=== PATIENT | male | born 1985 | race Caucasian/White ===

== ENCOUNTER 2017-07-24 19:23 | Emergency (ER) | payer OTHER ==
--- NOTE | 2017-07-24 19:46 | ERPHSYRPT ---
- History of Present Illness Time Seen by Provider: 07/24/17 19:25 Source: patient, police Exam Limitations: no limitations Physician History: 32 y/o male with history of depression and anxiety brought in by police for suicidal and homicidal ideation. Pt was being chased by police and when they tracked him down, he told them he wanted them to shoot him in the head. In the ER, patient says the same thing and also reports that if he sent to half-way, he will kill the first person he sees in half-way. Pt reports being off his zyprexa, klonopin and keppra. Pt also mentions that he feels as if a seizure is coming on. Pt denies any alcohol use, illicit drug use or auditory hallucinations but does admit to seeing things that are not there. Timing/Duration: today Severity of Symptoms-Max: severe Severity of Symptoms-Current: severe Suicidal thoughts: specific plan Associated Symptoms: agitated, anxiety, frustrated Previous symptoms: same symptoms as today Allergies/Adverse Reactions: No Known Drug Allergies Allergy (Verified 07/24/17 20:01) Home Medications: Clonazepam [Klonopin] 1 mg PO BID 09/06/14 [History] Levetiracetam [Keppra] 0 mg PO BID 07/24/17 [History] Hx Tetanus, Diphtheria Vaccination/Date Given: No Hx Influenza Vaccination/Date Given: No Hx Pneumococcal Vaccination/Date Given: No - Past Medical History Pertinent Past Medical History: Yes Neurological History: Epilepsy Cardiac History: Hypertension Respiratory History: Pneumonia Musculoskeletal History: Other Psycho-Social History: Bipolar, Depression - Past Surgical History Past Surgical History: Yes Neuro Surgical History: Other Musculoskeletal: Orthopedic Surgery Other Surgical History: left foot, right knee - Social History Smoking Status: Current every day smoker How long have you smoked: unknown Exposure to second hand smoke: Yes Drug Use: narcotics Patient Lives Alone: No - Review of Systems Constitutional: No Fever, No Chills Eyes: No Symptoms Ears, Nose, & Throat: No Symptoms Respiratory: No Cough, No Dyspnea Cardiac: No Chest Pain, No Edema, No Syncope Abdominal/Gastrointestinal: No Abdominal Pain, No Nausea, No Vomiting, No Diarrhea Genitourinary Symptoms: No Dysuria Musculoskeletal: No Back Pain, No Neck Pain Skin: No Rash Neurological: No Dizziness, No Focal Weakness, No Sensory Changes Psychological: No Symptoms, Drug Abuse, Anxiety Endocrine: No Symptoms All Other Systems: Reviewed and Negative - Nursing Vital Signs Nursing Vital Signs: Initial Vital Signs Temperature 98.9 F 07/24/17 19:36 Pulse Rate 112 H 07/24/17 19:36 Respiratory Rate 20 07/24/17 19:36 Blood Pressure 115/84 07/24/17 19:36 O2 Sat by Pulse Oximetry 100 07/24/17 19:36 - Physical Exam General Appearance: no apparent distress Eyes, Ears, Nose, Throat Exam: normal ENT inspection, moist mucous membranes Neck Exam: normal inspection, non-tender, supple Respiratory Exam: normal breath sounds, lungs clear, No respiratory distress Cardiovascular Exam: regular rate/rhythm, No edema Gastrointestinal/Abdominal Exam: soft, No tenderness, No distention Extremities Exam: normal inspection, normal range of motion, No evidence of injury, No edema Current Suicidality: denies suicide plan Neurological Exam: alert, 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, oriented x 3, agitated, anxious, depressed affect Appearance: disheveled Behavior/Eye Contact/Speech: increased rate of speech, uncooperative, agitated Thoughts/Hallucinations: visual hallucinations Skin Exam: normal color, warm, dry, No rash SpO2 Interpretation: normal Ordered Tests: Active Orders 24 hr Category Date Time Status Clean Catch Urine Specimen STAT Care 07/24/17 20:58 Active IV Insertion STAT Care 07/24/17 19:49 Active ACETAMINOPHEN Stat Lab 07/24/17 20:02 Completed CBC W DIFF Stat Lab 07/24/17 20:02 Completed CMP Stat Lab 07/24/17 20:02 Completed ETHYL ALCOHOL Stat Lab 07/24/17 20:02 Completed Manual Differential NC Stat Lab 07/24/17 20:02 Completed SALICYLATE Stat Lab 07/24/17 20:02 Completed UA W/RFX UR CULTURE Stat Lab 07/24/17 20:33 Completed Urine Triage Profile Stat Lab 07/24/17 20:33 Completed Medication Summary Discontinued Medications Generic Name Dose Route Start Last Admin Trade Name Freq PRN Reason Stop Dose Admin Levetiracetam 1,000 mg/ 110 mls @ 220 mls/hr 07/24/17 20:02 07/24/17 20:24 Dextrose IV 07/24/17 20:31 220 mls/hr STAT ONE Administration Dextrose Confirm 07/24/17 20:16 D5w 100ml Mini Bag 100 Ml Administered 07/24/17 20:17 Dose 100 mls @ ud IV .STK-MED ONE Levetiracetam Confirm 07/24/17 20:16 Keppra 500 Mg/5 Ml Administered 07/24/17 20:17 Dose 1,000 mg .ROUTE .STK-MED ONE Lab/Rad Data: Laboratory Result Diagrams 07/24/17 20:02 07/24/17 20:02 Laboratory Results 07/24/17 07/24/17 07/24/17 Range/Units 20:33 20:33 20:02 WBC (4.0-10.5) K/mm3 RBC (4.1-5.6) M/mm3 Hgb (12.5-18.0) gm/dl Hct (42-50) % MCV (78-100) fl MCH (26-32) pg MCHC (32-36) g/dl RDW (11.5-14.0) % Plt Count (150-450) K/mm3 MPV (6-9.5) fl Segmented Neutrophils (36.-66.) % Lymphocytes (Manual) (24-44) % Monocytes (Manual) (0.0-12.0) % Eosinophils (Manual) (0.00-3.0) % Differential Comment Atypical Lymphocytes % Platelet Estimate (NORMAL) Hypochromasia Sodium 136 (136-145) mEq/L Potassium 3.7 (3.5-5.1) mEq/L Chloride 99 (98-107) mEq/L Carbon Dioxide 23.1 (21-32) mEq/L Anion Gap 17.2 H (5-15) MEQ/L BUN 18 (9-20) mg/dL Creatinine 1.16 (0.55-1.30) mg/dl Estimated GFR > 60 ML/MIN Glucose 83 (70-110) MG/DL Calcium 8.5 (8.5-10.1) mg/dL Total Bilirubin 0.80 (0.2-1.0) mg/dL AST 287 H (15-37) U/L ALT 153 H (12-78) U/L Alkaline Phosphatase 72 (46-116) U/L Serum Total Protein 7.4 (6.4-8.2) gm/dL Albumin 3.8 (3.4-5.0) g/dL Ur Collection Type VOID Urine Color YELLOW (YELLOW) Urine Appearance CLEAR (CLEAR) Urine pH 5.0 (5-6) Ur Specific [place] 1.010 (1.005-1.025) Urine Protein NEGATIVE (Negative) Urine Ketones MODERATE (NEGATIVE) Urine Blood NEGATIVE (0-5) Eric/ul Urine Nitrite NEGATIVE (NEGATIVE) Urine Bilirubin NEGATIVE (NEGATIVE) Urine Urobilinogen NORMAL (0-1) mg/dL Ur Leukocyte Esterase NEGATIVE (NEGATIVE) Urine Culture Reflexed NO (NO) Urine Glucose NEGATIVE (NEGATIVE) mg/dL Salicylates 4.9 (2.8-20.0) mg/dl Urine Opiates Level NEG. (NEGATIVE) Ur Methadone NEG. (NEGATIVE) Acetaminophen < 2.0 L (10-30) ug/ml Urine Barbiturates NEG. (NEGATIVE) Ur Phencyclidine (PCP) NEG. (NEGATIVE) Urine Amphetamine POS. (NEGATIVE) U Benzodiazepine Level NEG. (NEGATIVE) Urine Cocaine NEG. (NEGATIVE) Urine Marijuana (THC) NEG. (NEGATIVE) Ethyl Alcohol < 0.010 (0.00-0.01) % Specimen Received 07/24/17 2030 07/24/17 Range/Units 20:02 WBC 14.8 H (4.0-10.5) K/mm3 RBC 4.00 L (4.1-5.6) M/mm3 Hgb 11.9 L (12.5-18.0) gm/dl Hct 35.4 L (42-50) % MCV 88.5 (78-100) fl MCH 29.7 (26-32) pg MCHC 33.6 (32-36) g/dl RDW 13.3 (11.5-14.0) % Plt Count 256 (150-450) K/mm3 MPV 9.5 (6-9.5) fl Segmented Neutrophils 73 H (36.-66.) % Lymphocytes (Manual) 16 L (24-44) % Monocytes (Manual) 6 (0.0-12.0) % Eosinophils (Manual) 1 (0.00-3.0) % Differential Comment ABNORMAL Atypical Lymphocytes 4 % Platelet Estimate NORMAL (NORMAL) Hypochromasia 1+ Sodium (136-145) mEq/L Potassium (3.5-5.1) mEq/L Chloride (98-107) mEq/L Carbon Dioxide (21-32) mEq/L Anion Gap (5-15) MEQ/L BUN (9-20) mg/dL Creatinine (0.55-1.30) mg/dl Estimated GFR ML/MIN Glucose (70-110) MG/DL Calcium (8.5-10.1) mg/dL Total Bilirubin (0.2-1.0) mg/dL AST (15-37) U/L ALT (12-78) U/L Alkaline Phosphatase (46-116) U/L Serum Total Protein (6.4-8.2) gm/dL Albumin (3.4-5.0) g/dL Ur Collection Type Urine Color (YELLOW) Urine Appearance (CLEAR) Urine pH (5-6) Ur Specific [place] (1.005-1.025) Urine Protein (Negative) Urine Ketones (NEGATIVE) Urine Blood (0-5) Eric/ul Urine Nitrite (NEGATIVE) Urine Bilirubin (NEGATIVE) Urine Urobilinogen (0-1) mg/dL Ur Leukocyte Esterase (NEGATIVE) Urine Culture Reflexed (NO) Urine Glucose (NEGATIVE) mg/dL Salicylates (2.8-20.0) mg/dl Urine Opiates Level (NEGATIVE) Ur Methadone (NEGATIVE) Acetaminophen (10-30) ug/ml Urine Barbiturates (NEGATIVE) Ur Phencyclidine (PCP) (NEGATIVE) Urine Amphetamine (NEGATIVE) U Benzodiazepine Level (NEGATIVE) Urine Cocaine (NEGATIVE) Urine Marijuana (THC) (NEGATIVE) Ethyl Alcohol (0.00-0.01) % Specimen Received - Progress Progress: unchanged Progress Note: 07/24/17 20:54 Pt has been medically cleared. 07/24/17 22:08 Pt has been accepted at [facility] for suicide and homicidal ideation under the care of Dr Mazariegos. - Departure Time of Disposition: 22:09 Departure Disposition: Transfer Clinical Impression: Suicidal ideation, Homicidal ideation Condition: Stable Critical Care Time: No Referrals: EMANI MARIE [Primary Care Provider] -
[2017-07-24] MEDS ORDERED: Keppra 500 MG/5 ML*** 1,000 MG in D5w 100ML Mini Bag 100 ML 100 ML IV ONE (20:02)
[2017-07-24 20:08] LABS: Mean Cell Volume 88.5 fl (78-100); Mean Platelet Volume 9.5 fl (6-9.5); Platelet Count 256 K/mm3 (150-450); Red Cell Distribution Width 13.3 % (11.5-14.0); White Blood Count 14.8 K/mm3 (4.0-10.5)
[2017-07-24 20:14] LABS: Mean Corpuscular Hemoglobin 29.7 pg (26-32)
[2017-07-24] MEDS ORDERED: Keppra 500 MG/5 ML ONE (20:16)
[2017-07-24] MEDS ORDERED: D5w 100ML Mini Bag 100 ML 100 ML IV ONE (20:16)
[2017-07-24 20:24] LABS: ALBUMIN 3.8 g/dL (3.4-5.0); ALKALINE PHOSPHATASE 72 U/L (46-116); ANION GAP 17.2 MEQ/L (5-15); BLOOD UREA NITROGEN 18 mg/dL (9-20); CHLORIDE 99 mEq/L (98-107); Carbon Dioxide 23.1 mEq/L (21-32); ETHYL ALCOHOL < 0.010 % (0.00-0.01); Glucose 83 MG/DL (70-110); Potassium 3.7 mEq/L (3.5-5.1); SGOT/AST 287 U/L (15-37); SGPT/ALT 153 U/L (12-78); SODIUM 136 mEq/L (136-145); Total Protein 7.4 gm/dL (6.4-8.2)
[2017-07-24 20:25] LABS: ACETAMINOPHEN < 2.0 ug/ml (10-30)
[2017-07-24 20:36] VITALS: O2SAT 97
[2017-07-24 20:36] LABS: Collection Type VOID
[2017-07-24 20:37] LABS: ADD URINE CULTURE? NO (NO); Bilirubin NEGATIVE (NEGATIVE); Blood NEGATIVE Ery/ul (0-5); COMPLETE URINE MICROSCOPIC? NO; Glucose NEGATIVE (NEGATIVE); Leukocyte Esterase NEGATIVE (NEGATIVE)
[2017-07-24 21:22] LABS: ATYPICAL LYMPHS 4 %; Eosinophil 1 % (0.00-3.0); Hypochromia 1+; Platelet Estimate NORMAL (NORMAL); Total Cells Counted 100
[2017-07-24 21:32] VITALS: BP 106/63; PULSE 108
== END 2017-07-24 22:45 | disposition short-term general hospital (02) ==
LOC: ED 19:23
DX: R45.851 Suicidal ideations (principal); R45.850 Homicidal ideations; Z79.899 Other long term (current) drug therapy; I10 Essential (primary) hypertension; F31.9 Bipolar disorder, unspecified
CPT/HCPCS: 36000; 36415; 80053; 80177; 80307; 81002; 85025; 96365; 99285; G0481; J1953

== ENCOUNTER 2018-08-09 05:49 | Emergency (ER) | payer OTHER ==
[2018-08-09 06:41] VITALS: BP 157/84
[2018-08-09 06:43] VITALS: O2SAT 96
--- NOTE | 2018-08-09 06:43 | ERPHSYRPT ---
- History of Present Illness Source: patient Exam Limitations: no limitations Patient Subjective Stated Complaint: Insect bite to right outer ankle Triage Nursing Assessment: Patient ambulated into ED and transferred self to bed. Patient A+O X 3. Patient states he thinks he was bit by a spider, but not sure. Patient states he woke up yesterday around 11 am and felt a sting on his right ankle bone. Patient states his ankle has continued to get red and swollen. Patient's right outer ankle noted to be swollen, red and painful. Patient states pain is 10/10 when standing or walking. Patient states when he is lying down he has no pain. Quality: burning, itchy, painful Severity: moderate Location: extremities (right ankle) Possible Causes: insect bite, other (possible injected with needle but pt denies ) Modifying Factors: Improves With: calamine lotion, other ([id number]) Associated Symptoms: change in skin texture, fever, No blisters, No difficulty breathing, No edema, No flushing, No headache, No hives, No jaundice, No nasal congestion, No numbness, No pallor, No paresthesia, No rash, No sore throat Hx Tetanus, Diphtheria Vaccination/Date Given: No Hx Influenza Vaccination/Date Given: No Hx Pneumococcal Vaccination/Date Given: No Immunizations Up to Date: Yes <ESTEBAN PIMENTEL - Last Filed: 08/09/18 06:53> <LAWANDA HAWKINS - Last Filed: 08/09/18 07:28> - History of Present Illness Time Seen by Provider: 08/09/18 06:20 Physician History: 33 y/o white male with h/o iv drug abuse in the past, presents with red, tender and swelling of right outer ankle. pt states he quit iv drug abuse several months ago. he thinks it was caused by an insect bite. he did not see it. tenderness worse when standing. noticed it yesterday morning. (ESTEBAN PIMENTEL) Allergies/Adverse Reactions: No Known Drug Allergies Allergy (Verified 08/09/18 06:09) Home Medications: Levetiracetam [Keppra] 0 mg PO BID 07/24/17 [History] - Review of Systems Constitutional: Fever Eyes: No Symptoms Ears, Nose, & Throat: No Symptoms Respiratory: No Symptoms Cardiac: No Symptoms Abdominal/Gastrointestinal: No Symptoms Genitourinary Symptoms: No Symptoms Skin: Cellulitis (right ankle lateral) Neurological: No Symptoms Psychological: No Symptoms Endocrine: No Symptoms Hematologic/Lymphatic: No Symptoms Immunological/Allergic: No Symptoms <ESTEBAN PIMENTEL - Last Filed: 08/09/18 06:53> - Past Medical History Pertinent Past Medical History: Yes Neurological History: Epilepsy Cardiac History: Hypertension Respiratory History: Pneumonia Musculoskeletal History: Other Psycho-Social History: Bipolar, Depression - Past Surgical History Past Surgical History: Yes Neuro Surgical History: Other Musculoskeletal: Orthopedic Surgery Other Surgical History: left foot, right knee - Social History Smoking Status: Current every day smoker How long have you smoked: 15 years Exposure to second hand smoke: Yes Drug Use: marijuana, narcotics, other (former iv drug abuser) Patient Lives Alone: No <ESTEBAN PIMENTEL - Last Filed: 08/09/18 06:53> - Physical Exam General Appearance: no apparent distress, alert, anxiety Eye Exam: PERRL/EOMI, eyes nml inspection Ears, Nose, Throat Exam: normal ENT inspection, moist mucous membranes Neck Exam: normal inspection, non-tender, supple, full range of motion Respiratory Exam: normal breath sounds, lungs clear, airway intact, No chest tenderness, No respiratory distress, No accessory muscle use, No rhonchi, No wheezing, No stridor Cardiovascular Exam: tachycardia Gastrointestinal/Abdomen Exam: soft, normal bowel sounds, No tenderness, No guarding, No rebound Rectal Exam: not done Back Exam: normal inspection, No CVA tenderness, No vertebral tenderness Extremity Exam: normal range of motion, pelvis stable, inflammation, swelling, tenderness, other (lateral right ankle) Neurologic Exam: alert, oriented x 3, cooperative, 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 Skin Exam: warm, other (redness and cellulitis lateral right ankle without abscess) Lymphatic Exam: No adenopathy SpO2 Interpretation: normal SpO2: 96 Oxygen Delivery: Room Air <ESTEBAN PIMENTEL - Last Filed: 08/09/18 06:53> <LAWANDA HAWKINS - Last Filed: 08/09/18 07:28> - Nursing Vital Signs Nursing Vital Signs: Initial Vital Signs Temperature 100.0 F 08/09/18 05:54 Pulse Rate 136 H 08/09/18 05:54 Respiratory Rate 18 08/09/18 05:54 Blood Pressure 169/92 08/09/18 05:54 O2 Sat by Pulse Oximetry 96 08/09/18 05:54 Pain Scale Pain Intensity 5 - Course Nursing assessment & vital signs reviewed: Yes <ESTEBAN PIMENTEL - Last Filed: 08/09/18 06:53> Ordered Tests: Active Orders 24 hr Category Date Time Status IV Insertion STAT Care 08/09/18 06:50 Active BLOOD CULTURE Stat Lab 08/09/18 07:05 Received CBC W DIFF Stat Lab 08/09/18 06:25 Completed CMP Stat Lab 08/09/18 06:25 Received Manual Differential NC Stat Lab 08/09/18 06:25 Completed Medication Summary Generic Name Dose Route Start Last Admin Trade Name Freq PRN Reason Stop Dose Admin Sodium Chloride 1,000 mls @ 999 mls/hr 08/09/18 06:50 08/09/18 07:00 Sodium Chloride 0.9% 1000 Ml IV 08/09/18 07:50 999 mls/hr .[id number] STA Administration Discontinued Medications Generic Name Dose Route Start Last Admin Trade Name Freq PRN Reason Stop Dose Admin Ceftriaxone Sodium/Dextrose 1 g in 50 mls @ 100 mls/hr 08/09/18 06:51 07:00 Rocephin 1 Gm-D5w 50 Ml Bag IV 08/09/18 07:20 100 ml/hr STAT STA 100 mls/hr Administration Sodium Chloride Confirm 08/09/18 06:57 Sodium Chloride 0.9% 1000 Ml Administered 08/09/18 06:58 Dose 1,000 mls @ ud .ROUTE .STK-MED ONE Ceftriaxone Sodium/Dextrose Confirm 08/09/18 06:57 Rocephin 1 Gm-D5w 50 Ml Bag Administered 08/09/18 06:58 Dose 1 g in 50 mls @ ud IV .STK-MED ONE Morphine Sulfate 2 mg 08/09/18 06:50 08/09/18 06:59 Morphine Sulfate 2 Mg Inj IV 08/09/18 06:51 Not Given STAT ONE Morphine Sulfate Confirm 08/09/18 06:56 Morphine Sulfate 2 Mg Inj Administered 08/09/18 06:57 Dose 2 mg .ROUTE .STK-MED ONE Ondansetron HCl 4 mg 08/09/18 06:50 08/09/18 06:59 Zofran 4 Mg/2 Ml Vial IV 08/09/18 06:51 Not Given STAT ONE Ondansetron HCl Confirm 08/09/18 06:56 Zofran 4 Mg/2 Ml Vial Administered 08/09/18 06:57 Dose 4 mg .ROUTE .STK-MED ONE Trimethoprim/Sulfamethoxazole 1 tab 08/09/18 06:50 08/09/18 06:58 Bactrim Ds Tablet PO 08/09/18 06:51 1 tab STAT ONE Administration Trimethoprim/Sulfamethoxazole Confirm 08/09/18 06:56 Bactrim Ds Tablet Administered 08/09/18 06:57 Dose 1 tab PO .STK-MED ONE Lab/Rad Data: Laboratory Result Diagrams 08/09/18 06:25 Laboratory Results 08/09/18 Range/Units 06:25 WBC 13.5 H (4.0-10.5) K/mm3 RBC 4.39 (4.1-5.6) M/mm3 Hgb 13.4 (12.5-18.0) gm/dl Hct 39.5 L (42-50) % MCV 90.0 (78-100) fl MCH 30.5 (26-32) pg MCHC 33.9 (32-36) g/dl RDW 13.1 (11.5-14.0) % Plt Count 299 (150-450) K/mm3 MPV 9.5 (6-9.5) fl - Progress Progress: unchanged Counseled pt/family regarding: diagnosis, need for follow-up <ESTEBAN PIMENTEL - Last Filed: 08/09/18 06:53> <LAWANDA HAWKINS - Last Filed: 08/09/18 07:28> - Progress Progress Note: 08/09/18 06:[address] hawkins. i reviewed hx, condition, and labs to follow up on. (ESTEBAN PIMENTEL) 08/09/18 07:24, THE CBC WITH WBC-13,500 (LAWANDA HAWKINS) - Departure Departure Disposition: Home Critical Care Time: No <ESTEBAN PIMENTEL - Last Filed: 08/09/18 06:53> - Departure Time of Disposition: 08:30 <LAWANDA HAWKINS - Last Filed: 08/09/18 07:28> - Departure Clinical Impression: Cellulitis Condition: Stable Referrals: WARREN RUTH [Primary Care Provider] - Additional Instructions: keep clean with soap and water. return tomorrow morning for re evaluation. BEGIN ANTIBIOTIC BACTRIM DS TWICE DAILY FOR 7 DAYS. Prescriptions: Hydrocodone/APAP 5/325 [[place] 5/325 mg] 1 each PO Q6H PRN PRN #4 tablet MDD 4 PRN Reason: Pain Smz/Tmp Ds Tablet [Bactrim Ds Tablet] 1 udtab PO BID #14 tablet
[2018-08-09] MEDS ORDERED: Zofran 4 MG/2 ML VIAL IV ONE (06:50)
[2018-08-09] MEDS ORDERED: MORPHINE SULFATE 2 MG INJ IV ONE (06:50)
[2018-08-09] MEDS ORDERED: BACTRIM DS TABLET PO ONE ×2 (06:50→06:56)
[2018-08-09] MEDS ORDERED: Sodium Chloride 0.9% 1000 ML 1,000 ML IV STA (06:50)
[2018-08-09] MEDS ORDERED: ROCEPHIN 1 Gm-D5w 50 ml Bag** 1 G/50 ML IVPB IV STA (06:51)
[2018-08-09 06:54] VITALS: PULSE 130
[2018-08-09] MEDS ORDERED: MORPHINE SULFATE 2 MG INJ ONE (06:56)
[2018-08-09] MEDS ORDERED: Zofran 4 MG/2 ML VIAL ONE (06:56)
[2018-08-09] MEDS ORDERED: Sodium Chloride 0.9% 1000 ML 1,000 ML ONE (06:57)
[2018-08-09] MEDS ORDERED: ROCEPHIN 1 Gm-D5w 50 ml Bag** 1 G/50 ML IVPB IV ONE (06:57)
[2018-08-09 06:59] LABS: Hematocrit 39.5 % (42-50); Hemoglobin 13.4 gm/dl (12.5-18.0); Mean Corpuscular Hemoglobin 30.5 pg (26-32); Mean Corpuscular Hgb Concent. 33.9 g/dl (32-36); Mean Platelet Volume 9.5 fl (6-9.5); Platelet Count 299 K/mm3 (150-450); Red Blood Count 4.39 M/mm3 (4.1-5.6); Red Cell Distribution Width 13.1 % (11.5-14.0); White Blood Count 13.5 K/mm3 (4.0-10.5)
[2018-08-09 07:26] LABS: BAND 2 % (0.0-2.0); Lymphocytes 23 % (24-44); Monocyte 9 % (0.0-12.0); Neutrophils 66 % (36.-66.); Platelet Estimate NORMAL (NORMAL); Total Cells Counted 100; Toxic Granulation 1+
[2018-08-09 07:30] LABS: ALBUMIN 4.6 g/dL (3.5-5.0); ALKALINE PHOSPHATASE 79 U/L (38-126); ANION GAP 13.7 MEQ/L (5-15); BLOOD UREA NITROGEN 12 mg/dL (9-20); CHLORIDE 96 mmol/L (98-107); Calcium 9.5 mg/dL (8.4-10.2); Carbon Dioxide 27 mmol/L (22-30); Creatinine 1 0.77 mg/dL (0.66-1.25); Glucose 162 mg/dL (74-106); Potassium 3.4 mmol/L (3.5-5.1); SGOT/AST 34 U/L (17-59); SGPT/ALT 38 U/L (0-50); SODIUM 133 mmol/L (137-145)
== END 2018-08-09 07:50 | disposition home or self-care (01) ==
LOC: ED 05:49
DX: L03.115 Cellulitis of right lower limb (principal); Z79.899 Other long term (current) drug therapy
CPT/HCPCS: 36000; 36415; 80053; 85025; 87040; 96360; 96365; 96374; 96375; 99284; J0696; J2270; J2405; A9270-GY

== ENCOUNTER 2018-09-19 15:42 | Emergency (ER) | payer OTHER ==
--- NOTE | 2018-09-19 16:16 | ERPHSYRPT ---
- History of Present Illness Time Seen by Provider: 09/19/18 15:50 Source: patient Exam Limitations: intoxication Patient Subjective Stated Complaint: Pt states "I just need to get my medicine. I take abilify and when I do not, I get all messed up.". [facility] states "he was at environmental technical officer today and was acting manic or high so they brought him here and we need to know if it is psychological or if he is on something. Triage Nursing Assessment: Pt alert and oriented X 3, skin pwd. Pt ambulates with an upright steady gait, able to speak in clear full sentences. PT speaking rapidly, extremely fidgety, lethargic, falls alseep when not spoken to. Pt denied any suicidal or homicidal ideation. Physician History: 33 y/o white male presents from [facility] after pt was acting intoxicated , agitated and manic. pt brought to [facility] by his environmental technical officer. pt denies suicidal or homicidal issues. he states he has been off his meds. upon arrival into ED he is hallucinating and speaking to individuals in his room that are not there. it is unclear if pt is off his meds or on illicit drugs. Timing/Duration: today Severity of Symptoms-Max: moderate Severity of Symptoms-Current: moderate Context related to: other (medications) Suicidal thoughts: other (no) Associated Symptoms: agitated, hallucinating Previous symptoms: same symptoms as today Allergies/Adverse Reactions: No Known Drug Allergies Allergy (Verified 09/19/18 15:51) Home Medications: Levetiracetam [Keppra] 0 mg PO BID 07/24/17 [History] Clonazepam 0.5 mg [Klonopin 0.5 MG] 0.5 mg PO DAILY 09/19/18 [History] Famotidine 20 mg [Pepcid 20 MG] 20 mg PO DAILY 09/19/18 [History] Methadone HCl 5 mg PO DAILY 09/19/18 [History] Methylphenidate HCl [Methylphenidate ER] 20 mg PO DAILY 09/19/18 [History] Hx Tetanus, Diphtheria Vaccination/Date Given: Yes Hx Influenza Vaccination/Date Given: No Hx Pneumococcal Vaccination/Date Given: No Immunizations Up to Date: Yes - Past Medical History Pertinent Past Medical History: Yes Neurological History: Epilepsy ENT History: No Pertinent History Cardiac History: Hypertension Respiratory History: Pneumonia Endocrine Medical History: No Pertinent History Musculoskeletal History: Other GI Medical History: No Pertinent History History: No Pertinent History Psycho-Social History: Bipolar, Depression Male Reproductive Disorders: No Pertinent History - Past Surgical History Past Surgical History: Yes Neuro Surgical History: Other Cardiac: No Pertinent History Respiratory: No Pertinent History Gastrointestinal: No Pertinent History Genitourinary: No Pertinent History Musculoskeletal: Orthopedic Surgery Male Surgical History: No Pertinent History Other Surgical History: left foot, right knee - Social History Smoking Status: Current every day smoker How long have you smoked: years Exposure to second hand smoke: Yes Drug Use: marijuana, narcotics, other Patient Lives Alone: No - Review of Systems Constitutional: No Symptoms Eyes: No Symptoms Ears, Nose, & Throat: No Symptoms Respiratory: No Symptoms Cardiac: No Symptoms Abdominal/Gastrointestinal: No Symptoms Genitourinary Symptoms: No Symptoms Musculoskeletal: No Symptoms Skin: No Symptoms Neurological: No Symptoms Psychological: Anxiety, Emotional Lability, Hallucinations (pt speaking to individuals in the room that are not there) Hematologic/Lymphatic: No Symptoms Immunological/Allergic: No Symptoms All Other Systems: Reviewed and Negative - Nursing Vital Signs Nursing Vital Signs: Initial Vital Signs Temperature 100.0 F 09/19/18 15:43 Pulse Rate 118 H 09/19/18 15:43 Respiratory Rate 22 09/19/18 15:43 Blood Pressure 131/96 09/19/18 15:43 O2 Sat by Pulse Oximetry 93 L 09/19/18 15:43 Pain Scale Pain Intensity 0 - Physical Exam General Appearance: no apparent distress, alert, anxiety Eyes, Ears, Nose, Throat Exam: normal ENT inspection, dry mucous membranes Neck Exam: normal inspection, non-tender, supple Respiratory Exam: normal breath sounds, lungs clear, airway intact, No chest tenderness, No respiratory distress, No accessory muscle use, No rhonchi, No wheezing, No stridor Cardiovascular Exam: tachycardia Gastrointestinal/Abdominal Exam: soft, normal bowel sounds, No tenderness, No guarding Extremities Exam: normal inspection, normal range of motion, No evidence of injury Neurological Exam: alert, materials assistant II-XII nml as tested Appearance: impaired insight Behavior/Eye Contact/Speech: alert & cooperative, good eye contact, increased rate of speech, agitated, intoxicated appearance Thoughts/Hallucinations: visual hallucinations Skin Exam: normal color, warm, dry SpO2 Interpretation: borderline oxygenation SpO2: 93 Oxygen Delivery: Room Air - Course Nursing assessment & vital signs reviewed: Yes EKG Interpreted by Me: RATE ([id number]), Sinus Tach, NORMAL AXIS, NORMAL INTERVALS, NORMAL QRS, NORMAL ST-T, Other (no change from ekg dated 01/29/15) Ordered Tests: Active Orders 24 hr Category Date Time Status Office Inspector STAT Care 09/19/18 16:17 Active Clean Catch Urine Specimen STAT Care 09/19/18 16:16 Active EKG-ER Only STAT Care 09/19/18 16:16 Active Psychiatric Consult STAT Cons 09/19/18 16:16 Active ACETAMINOPHEN Stat Lab 09/19/18 16:28 Completed BMP Stat Lab 09/19/18 16:28 Completed CBC W DIFF Stat Lab 09/19/18 16:28 Completed ETHYL ALCOHOL Stat Lab 09/19/18 16:28 Completed Manual Differential NC Stat Lab 09/19/18 16:28 Completed SALICYLATE Stat Lab 09/19/18 16:28 Completed UA W/RFX UR CULTURE Stat Lab 09/19/18 16:35 Completed Urine Triage Profile Stat Lab 09/19/18 16:35 Completed Lab/Rad Data: Laboratory Result Diagrams 09/19/18 16:28 09/19/18 16:28 Laboratory Results 09/19/18 09/19/18 09/19/18 Range/Units 16:35 16:35 16:28 WBC (4.0-10.5) K/mm3 RBC (4.1-5.6) M/mm3 Hgb (12.5-18.0) gm/dl Hct (42-50) % MCV (78-100) fl MCH (26-32) pg MCHC (32-36) g/dl RDW (11.5-14.0) % Plt Count (150-450) K/mm3 MPV (6-9.5) fl Absolute Granulocytes (1.4-6.9) Segmented Neutrophils (36.-66.) % Lymphocytes (Manual) (24-44) % Monocytes (Manual) (0.0-12.0) % Eosinophils (Manual) (0.00-3.0) % Platelet Estimate (NORMAL) RBC Morphology Sodium 141 (137-145) mmol/L Potassium 4.3 (3.5-5.1) mmol/L Chloride 103 (98-107) mmol/L Carbon Dioxide 25 (22-30) mmol/L Anion Gap 17.1 H (5-15) MEQ/L BUN 36 H (9-20) mg/dL Creatinine 1.33 H (0.66-1.25) mg/dL Estimated GFR > 60.0 ML/MIN Glucose 82 (74-106) mg/dL Calcium 9.4 (8.4-10.2) mg/dL Urine Color YELLOW (YELLOW) Urine Appearance SLIGHTLY CLOUDY (CLEAR) Urine pH 5.0 (5-6) Ur Specific [place] 1.021 (1.005-1.025) Urine Protein NEGATIVE (Negative) Urine Ketones SMALL (NEGATIVE) Urine Blood NEGATIVE (0-5) Eric/ul Urine Nitrite NEGATIVE (NEGATIVE) Urine Bilirubin NEGATIVE (NEGATIVE) Urine Urobilinogen NEGATIVE (0-1) mg/dL Ur Leukocyte Esterase NEGATIVE (NEGATIVE) Urine WBC (Auto) 0-2 (0-5) /HPF Urine RBC (Auto) NONE (0-2) /HPF U Hyaline Cast (Auto) 26-50 (0-2) /LPF U Epithel Cells (Auto) NONE (FEW) /HPF Urine Bacteria (Auto) NONE (NEGATIVE) /HPF Urine Mucus (Auto) SLIGHT (NEGATIVE) /HPF Urine Culture Reflexed NO (NO) Urine Glucose NEGATIVE (NEGATIVE) mg/dL Salicylates < 1.0 L (2-20) mg/dL Urine Opiates Level POSITIVE (NEGATIVE) Ur Methadone POSITIVE (NEGATIVE) Acetaminophen < 10 L (10-30) ug/ml Urine Barbiturates NEGATIVE (NEGATIVE) Ur Phencyclidine (PCP) NEGATIVE (NEGATIVE) Urine Amphetamine POSITIVE (NEGATIVE) U Benzodiazepine Level NEGATIVE (NEGATIVE) Urine Cocaine NEGATIVE (NEGATIVE) Urine Marijuana (THC) NEGATIVE (NEGATIVE) Ethyl Alcohol < 10 (0-10) mg/dL /18/18 Range/Units 16:28 WBC 12.4 H (4.0-10.5) K/mm3 RBC 4.34 (4.1-5.6) M/mm3 Hgb 12.9 (12.5-18.0) gm/dl Hct 39.5 L (42-50) % MCV 91.0 (78-100) fl MCH 29.7 (26-32) pg MCHC 32.7 (32-36) g/dl RDW 13.7 (11.5-14.0) % Plt Count 345 (150-450) K/mm3 MPV 8.6 (6-9.5) fl Absolute Granulocytes 6.14 (1.4-6.9) Segmented Neutrophils 55 (36.-66.) % Lymphocytes (Manual) 31 (24-44) % Monocytes (Manual) 13 H (0.0-12.0) % Eosinophils (Manual) 1 (0.00-3.0) % Platelet Estimate NORMAL (NORMAL) RBC Morphology NORMAL Sodium (137-145) mmol/L Potassium (3.5-5.1) mmol/L Chloride (98-107) mmol/L Carbon Dioxide (22-30) mmol/L Anion Gap (5-15) MEQ/L BUN (9-20) mg/dL Creatinine (0.66-1.25) mg/dL Estimated GFR ML/MIN Glucose (74-106) mg/dL Calcium (8.4-10.2) mg/dL Urine Color (YELLOW) Urine Appearance (CLEAR) Urine pH (5-6) Ur Specific [place] (1.005-1.025) Urine Protein (Negative) Urine Ketones (NEGATIVE) Urine Blood (0-5) Eric/ul Urine Nitrite (NEGATIVE) Urine Bilirubin (NEGATIVE) Urine Urobilinogen (0-1) mg/dL Ur Leukocyte Esterase (NEGATIVE) Urine WBC (Auto) (0-5) /HPF Urine RBC (Auto) (0-2) /HPF U Hyaline Cast (Auto) (0-2) /LPF U Epithel Cells (Auto) (FEW) /HPF Urine Bacteria (Auto) (NEGATIVE) /HPF Urine Mucus (Auto) (NEGATIVE) /HPF Urine Culture Reflexed (NO) Urine Glucose (NEGATIVE) mg/dL Salicylates (2-20) mg/dL Urine Opiates Level (NEGATIVE) Ur Methadone (NEGATIVE) Acetaminophen (10-30) ug/ml Urine Barbiturates (NEGATIVE) Ur Phencyclidine (PCP) (NEGATIVE) Urine Amphetamine (NEGATIVE) U Benzodiazepine Level (NEGATIVE) Urine Cocaine (NEGATIVE) Urine Marijuana (THC) (NEGATIVE) Ethyl Alcohol (0-10) mg/dL - Progress Progress Note: 09/19/18 19:52 pt becoming more agitated. stated to chon brock "if i dont get help now, im going to blow my brains out!" i will place pt on emergency senior living for transfer to a inpatient psychiatric facility. 09/19/18 21:38 dr. rizvi from [facility] reviewed all info sent to them. he accepts pt for transfer. Counseled pt/family regarding: lab results, diagnosis - Departure Time of Disposition: 21:40 Departure Disposition: Home Clinical Impression: Hallucinations, Manic behavior, Agitation Condition: Stable Critical Care Time: No Referrals: WARREN RUTH [Primary Care Provider] -
[2018-09-19 16:33] LABS: Granulocyte Absolute (ANC) 6.14 (1.4-6.9); Hematocrit 39.5 % (42-50); Hemoglobin 12.9 gm/dl (12.5-18.0); Mean Corpuscular Hemoglobin 29.7 pg (26-32); Mean Corpuscular Hgb Concent. 32.7 g/dl (32-36); Mean Platelet Volume 8.6 fl (6-9.5); Platelet Count 345 K/mm3 (150-450); Red Blood Count 4.34 M/mm3 (4.1-5.6); Red Cell Distribution Width 13.7 % (11.5-14.0); White Blood Count 12.4 K/mm3 (4.0-10.5)
[2018-09-19 17:05] LABS: Appearance SLIGHTLY CLOUDY (CLEAR); Bilirubin NEGATIVE (NEGATIVE); Blood NEGATIVE Ery/ul (0-5); Glucose NEGATIVE (NEGATIVE); Ketones SMALL (NEGATIVE); Leukocyte Esterase NEGATIVE (NEGATIVE); Nitrite NEGATIVE (NEGATIVE); Protein,Urine Dip NEGATIVE (Negative); Specific Gravity 1.021 (1.005-1.025); Urobilinogen NEGATIVE mg/dL (0-1)
[2018-09-19 17:18] LABS: ANION GAP 17.1 MEQ/L (5-15); BLOOD UREA NITROGEN 36 mg/dL (9-20); CHLORIDE 103 mmol/L (98-107); Calcium 9.4 mg/dL (8.4-10.2); Carbon Dioxide 25 mmol/L (22-30); Creatinine 1 1.33 mg/dL (0.66-1.25); Eosinophil 1 % (0.00-3.0); Glucose 82 mg/dL (74-106); Lymphocytes 31 % (24-44); Monocyte 13 % (0.0-12.0); Neutrophils 55 % (36.-66.); Platelet Estimate NORMAL (NORMAL); Potassium 4.3 mmol/L (3.5-5.1); SODIUM 141 mmol/L (137-145); Total Cells Counted 100
[2018-09-19 17:21] LABS: ACETAMINOPHEN < 10 ug/ml (10-30); ETHYL ALCOHOL < 10 mg/dL (0-10); SALICYLATE < 1.0 mg/dL (2-20)
[2018-09-19 17:29] LABS: Barbiturate,Urine NEGATIVE (NEGATIVE); Benzodiazepine,Urine NEGATIVE (NEGATIVE); Cocaine,Urine NEGATIVE (NEGATIVE); Methadone,Urine POSITIVE (NEGATIVE); Opiate,Urine POSITIVE (NEGATIVE); PCP,Urine NEGATIVE (NEGATIVE); THC,Urine NEGATIVE (NEGATIVE)
[2018-09-19 17:58] LABS: Amphetamine,Urine POSITIVE (NEGATIVE)
[2018-09-19 21:45] VITALS: BP 127/67; PULSE 92; O2SAT 95
[2018-09-19] MEDS ORDERED: Klonopin 0.5 MG ONE (22:27)
[2018-09-20] MEDS ORDERED: Klonopin 0.5 MG PO ONE (22:21)
== END 2018-09-19 22:52 ==
LOC: ED 15:42
DX: R44.3 Hallucinations, unspecified (principal); F30.9 Manic episode, unspecified; R45.1 Restlessness and agitation; Z79.899 Other long term (current) drug therapy
CPT/HCPCS: 36415; 80048; 80307; 81001; 85025; 93005; 93041; 99285; G0480; G0481; A9270-GY

== ENCOUNTER 2019-06-15 19:09 | Emergency (ER) | payer OTHER ==
[2019-06-15 19:39] LABS: BASOPHIL % 0.2 % (0.0-0.4); Basophil (Absolute #) 0.02 (0-0.4); Eosinophil % 2.4 % (0.00-5.0); Eosinophil (Absolute #) 0.27 (0-0.5); Granulocyte Absolute (ANC) 5.21 (1.4-6.9); Granulocytes % 45.6 % (36.0-66.0); Hemoglobin 12.4 gm/dl (12.5-18.0); Lymphocyte (Absolute #) 4.59 (1.0-4.6); Lymphocytes % 40.3 % (24.0-44.0); Mean Cell Volume 91.1 fl (78-100); Mean Corpuscular Hemoglobin 30.5 pg (26-32); Mean Corpuscular Hgb Concent. 33.5 g/dl (32-36); Monocyte (Absolute #) 1.31 (0.0-1.3); Monocytes % 11.5 % (0.0-12.0); Platelet Count 288 K/mm3 (150-450); Red Blood Count 4.06 M/mm3 (4.1-5.6); Red Cell Distribution Width 13.4 % (11.5-14.0); White Blood Count 11.4 K/mm3 (4.0-10.5)
[2019-06-15 19:45] LABS: INR 1.02 (0.8-3.0); PROTIME 11.5 SECONDS (8.83-12.87)
--- NOTE | 2019-06-15 19:46 | ERPHSYRPT ---
- History of Present Illness Time Seen by Provider: 06/15/19 19:15 Source: patient, police Exam Limitations: no limitations Patient Subjective Stated Complaint: per law enforcement- pt started c/o shortness of breath en route to nursing home. pt states he hs dizzy and has pain in the front to f his head. Triage Nursing Assessment: pt alert and oriented, arrive with law enforcement. ambulates into room, steady gait noted. pt tachypnic, lungs cta. skin warm and dry. o2 sat 100 on room air. pt restless in bed, c/o anxiety and pain in his head Physician History: Patient began having shortness of breath after he was arrested by police for violating a restraining order. Patient did not suffer any injury prior to experiencing the dyspnea sensation. Timing/Duration: today Activities at Onset: emotional stress Severity of Dyspnea-Max: severe Severity of Dyspnea-Current: severe Possible Cause: occasional episodes Modifying Factors: Improves With: other (being arrested). Worsens With: deep breath, exertion Associated Symptoms: constant, anxiety, lightheadedness, dizziness, No cough, No chest pain/discomfort, No edema, No fever, No wheezing, No weakness, No ankle swelling, No hemoptysis, No calf pain, No heaviness, No leg swelling, No muscle spasms hands, No painful breathing, No productive cough Allergies/Adverse Reactions: No Known Drug Allergies Allergy (Verified 06/15/19 19:33) Home Medications: Levetiracetam [Keppra] 500 mg PO BID 07/24/17 [History] Famotidine 20 mg [Pepcid 20 MG] 20 mg PO BID 09/19/18 [History] Methadone HCl 5 mg PO DAILY 09/19/18 [History] Methylphenidate HCl [Methylphenidate ER] 20 mg PO DAILY 09/19/18 [History] Buspirone HCl [Buspar] 10 mg PO BID 06/15/19 [History] Divalproex Sodium [Depakote ER] 500 mg PO BID 06/15/19 [History] Enalapril/Hydrochlorothiazide [Enalapril-Hctz 10-25 mg Tablet] 1 each PO DAILY 06/15/19 [History] Gabapentin 300 mg PO TID 06/15/19 [History] Mirtazapine [Remeron] 15 mg PO HS 06/15/19 [History] OLANZapine [Zyprexa] 25 mg PO HS 06/15/19 [History] Prazosin HCl 1 mg PO HS 06/15/19 [History] Hx Tetanus, Diphtheria Vaccination/Date Given: No (unsure) Hx Influenza Vaccination/Date Given: No Hx Pneumococcal Vaccination/Date Given: No - Review of Systems Constitutional: No Fever, No Chills, No Weakness Eyes: No Eye Pain, No Vision Changes Ears, Nose, & Throat: No Nose Congestion, No Epistaxis, No Loose Teeth, No Throat Swelling, No Hoarse, No Stridor Respiratory: Dyspnea, No Cough, No Stridor, No Wheezing Cardiac: No Chest Pain, No Edema, No Syncope Abdominal/Gastrointestinal: No Abdominal Pain, No Nausea, No Vomiting, No Diarrhea Genitourinary Symptoms: No Dysuria Musculoskeletal: No Back Pain, No Neck Pain Skin: No Rash Neurological: No Dizziness, No Focal Weakness, No Sensory Changes Psychological: No Symptoms Endocrine: No Symptoms All Other Systems: Reviewed and Negative - Past Medical History Pertinent Past Medical History: Yes Neurological History: Epilepsy ENT History: No Pertinent History Cardiac History: Hypertension Respiratory History: Pneumonia Endocrine Medical History: No Pertinent History Musculoskeletal History: Other GI Medical History: No Pertinent History History: No Pertinent History Psycho-Social History: Bipolar, Depression Male Reproductive Disorders: No Pertinent History Other Medical History: schizophrenia - Past Surgical History Past Surgical History: Yes Neuro Surgical History: Other Cardiac: No Pertinent History Respiratory: No Pertinent History Gastrointestinal: No Pertinent History Genitourinary: No Pertinent History Musculoskeletal: Orthopedic Surgery Male Surgical History: No Pertinent History Other Surgical History: left foot, right knee - Social History Smoking Status: Current every day smoker How long have you smoked: years Exposure to second hand smoke: No Drug Use: none Patient Lives Alone: No - Nursing Vital Signs Nursing Vital Signs: Initial Vital Signs Temperature 98.0 F 06/15/19 19:10 Pulse Rate 110 H 06/15/19 19:10 Respiratory Rate 30 H 06/15/19 19:10 Blood Pressure 156/106 06/15/19 19:10 O2 Sat by Pulse Oximetry 100 06/15/19 19:10 Pain Scale Pain Intensity 0 - Physical Exam General Appearance: no apparent distress, alert Eye Exam: PERRL/EOMI, eyes nml inspection, No scleral icterus, No photophobia Ears, Nose, Throat Exam: hearing grossly normal, normal ENT inspection, normal pharynx Neck Exam: normal inspection, non-tender, supple, full range of motion, No Brudzinski, No Kernig's, No meningismus, No JVD, No limited range of motion, No lymphadenopathy (R), No lymphadenopathy (L) Respiratory Exam: normal breath sounds, lungs clear, respiratory distress, airway intact, No chest tenderness, No diminished breath sounds, No accessory muscle use, No prolonged expirations, No crackles/rales, No rhonchi, No wheezing , No stridor, No pleural rub Cardiovascular/Chest Exam: normal heart sounds, regular rate/rhythm, normal peripheral pulses, No murmur, No edema, No JVD Abdominal/Gastrointestinal Exam: soft, normal bowel sounds, No tenderness, No distention, No mass Extremity Exam: non-tender, normal range of motion, normal inspection, normal capillary refill, no calf tenderness, no pedal edema Peripheral Pulses Exam: carotid (R): 2+, carotid (L): 2+ Neurologic Exam: alert, oriented x 3, cooperative, 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, sensation nml, No motor deficits Skin Exam: normal color, warm, No dry, No rash SpO2 Interpretation: normal SpO2: 100 O2 Delivery: Room Air - Course Nursing assessment & vital signs reviewed: Yes EKG Interpreted by Me: RATE, NORMAL AXIS, NORMAL INTERVALS, NORMAL QRS, NORMAL ST-T, Other (no change in comparison to EKG from 09/19/2018) Ordered Tests: Active Orders 24 hr Category Date Time Status [employer] Operator STAT Care 06/15/19 19:13 Active EKG-ER Only STAT Care 06/15/19 19:12 Active IV Insertion STAT Care 06/15/19 19:12 Active NPO (ED) STAT Care 06/15/19 19:12 Active CHEST 1 VIEW (PORTABLE) Stat Exams 06/15/19 19:13 Taken CBC W DIFF Stat Lab 06/15/19 19:12 Completed CMP Stat Lab 06/15/19 19:12 Completed D-DIMER QUANTITATION Stat Lab 06/15/19 19:12 Completed Lactic Acid Stat Lab 06/15/19 19:40 Completed Lactic Acid Stat Lab 06/15/19 21:46 Received MAGNESIUM Stat Lab 06/15/19 19:12 Completed NT PRO BNP Stat Lab 06/15/19 19:12 Completed PROTIME WITH INR Stat Lab 06/15/19 19:12 Completed TROPONIN Q3H Lab 06/15/19 19:15 Completed TROPONIN Q3H Lab 06/15/19 22:15 Ordered TROPONIN Q3H Lab 06/16/19 01:15 Ordered TROPONIN Q3H Lab 06/16/19 04:15 Ordered TROPONIN Q3H Lab 06/16/19 07:15 Ordered UA W/RFX UR CULTURE Stat Lab 06/15/19 19:45 Completed Urine Triage Profile Stat Lab 06/15/19 20:04 Completed VENOUS BLOOD GAS Stat Lab 06/15/19 19:40 Completed Medication Summary Generic Name Dose Route Start Last Admin Trade Name Freq PRN Reason Stop Dose Admin Sodium Chloride 2,000 mls @ 999 mls/hr 06/15/19 19:57 06/15/19 21:02 Sodium Chloride 0.9% 1000 Ml IV 06/15/19 21:57 999 mls/hr .Q2H1M STA Administration Discontinued Medications Generic Name Dose Route Start Last Admin Trade Name Freq PRN Reason Stop Dose Admin Sodium Chloride Confirm 06/15/19 19:56 Sodium Chloride 0.9% 1000 Ml Administered 06/15/19 19:57 Dose 1,000 mls @ ud .ROUTE .STK-MED ONE Sodium Chloride Confirm 06/15/19 21:00 Sodium Chloride 0.9% 1000 Ml Administered 06/15/19 21:01 Dose 1,000 mls @ ud .ROUTE .STK-MED ONE Lab/Rad Data: Laboratory Result Diagrams 06/15/19 19:12 06/15/19 19:12 Laboratory Results 06/15/19 06/15/19 06/15/19 Range/Units Unknown 21:46 20:04 WBC (4.0-10.5) K/mm3 RBC (4.1-5.6) M/mm3 Hgb (12.5-18.0) gm/dl Hct (42-50) % MCV (78-100) fl MCH (26-32) pg MCHC (32-36) g/dl RDW (11.5-14.0) % Plt Count (150-450) K/mm3 MPV (6-9.5) fl Gran % (36.0-66.0) % Eos # (Auto) (0-0.5) Absolute Lymphs (auto) (1.0-4.6) Absolute Monos (auto) (0.0-1.3) Lymphocytes % (24.0-44.0) % Monocytes % (0.0-12.0) % Eosinophils % (0.00-5.0) % Basophils % (0.0-0.4) % Absolute Granulocytes (1.4-6.9) Basophils # (0-0.4) PT (8.83-12.87) SECONDS INR (0.8-3.0) D-Dimer (215-500) ng/mL pO2/FiO2 Ratio % VBG pH (7.32-7.42) VBG pCO2 at Pat Temp (42-55) mm/Hg VBG pO2 at Pat Temp (25-40) mm/Hg VBG HCO3 (22-28) meq/L VBG O2 Sat (Monika) (95-100) VBG Base Excess (-2.0-2.0) VBG Hemoglobin VBG Carboxyhemoglobin (0.0-6.9) % T HGB POC Potassium (3.5-5.1) Sodium (137-145) mmol/L Potassium (3.5-5.1) mmol/L Chloride (98-107) mmol/L Carbon Dioxide (22-30) mmol/L Anion Gap (5-15) MEQ/L BUN (9-20) mg/dL Creatinine (0.66-1.25) mg/dL Estimated GFR ML/MIN Glucose (74-106) mg/dL Lactic Acid 2.4 H (0.4-2.0) Calcium (8.4-10.2) mg/dL Magnesium (1.6-2.3) mg/dL Total Bilirubin (0.2-1.3) mg/dL AST (17-59) U/L ALT (0-50) U/L Alkaline Phosphatase (38-126) U/L Troponin I (0.000-0.034) ng/mL NT-Pro-B Natriuret Pep (0-450) pg/mL Serum Total Protein (6.3-8.2) g/dL Albumin (3.5-5.0) g/dL Urine Color (YELLOW) Urine Appearance (CLEAR) Urine pH (5-6) Ur Specific [place] (1.005-1.025) Urine Protein (Negative) Urine Ketones (NEGATIVE) Urine Blood (0-5) Eric/ul Urine Nitrite (NEGATIVE) Urine Bilirubin (NEGATIVE) Urine Urobilinogen (0-1) mg/dL Ur Leukocyte Esterase (NEGATIVE) Urine WBC (Auto) (0-5) /HPF Urine RBC (Auto) (0-2) /HPF U Epithel Cells (Auto) (FEW) /HPF Urine Bacteria (Auto) (NEGATIVE) /HPF Urine Mucus (Auto) (NEGATIVE) /HPF Urine Culture Reflexed (NO) Urine Glucose (NEGATIVE) mg/dL Urine Opiates Level NEGATIVE (NEGATIVE) Ur Methadone POSITIVE (NEGATIVE) Urine Barbiturates NEGATIVE (NEGATIVE) Ur Phencyclidine (PCP) NEGATIVE (NEGATIVE) Urine Amphetamine POSITIVE (NEGATIVE) U Benzodiazepine Level NEGATIVE (NEGATIVE) Urine Cocaine NEGATIVE (NEGATIVE) Urine Marijuana (THC) NEGATIVE (NEGATIVE) Influenza Type A Ag NEGATIVE (NEGATIVE) Influenza Type B Ag NEGATIVE (NEGATIVE) RSV (PCR) NEGATIVE (Negative) 06/15/19 06/15/19 06/15/19 Range/Units 19:45 19:40 19:15 WBC (4.0-10.5) K/mm3 RBC (4.1-5.6) M/mm3 Hgb (12.5-18.0) gm/dl Hct (42-50) % MCV (78-100) fl MCH (26-32) pg MCHC (32-36) g/dl RDW (11.5-14.0) % Plt Count (150-450) K/mm3 MPV (6-9.5) fl Gran % (36.0-66.0) % Eos # (Auto) (0-0.5) Absolute Lymphs (auto) (1.0-4.6) Absolute Monos (auto) (0.0-1.3) Lymphocytes % (24.0-44.0) % Monocytes % (0.0-12.0) % Eosinophils % (0.00-5.0) % Basophils % (0.0-0.4) % Absolute Granulocytes (1.4-6.9) Basophils # (0-0.4) PT (8.83-12.87) SECONDS INR (0.8-3.0) D-Dimer (215-500) ng/mL pO2/FiO2 Ratio 21.0 % VBG pH 7.46 H (7.32-7.42) VBG pCO2 at Pat Temp 35 L (42-55) mm/Hg VBG pO2 at Pat Temp 24 L (25-40) mm/Hg VBG HCO3 24.9 (22-28) meq/L VBG O2 Sat (Monika) 56.8 L (95-100) VBG Base Excess 1.4 (-2.0-2.0) VBG Hemoglobin 12.6 VBG Carboxyhemoglobin 7.8 H* (0.0-6.9) % T HGB POC Potassium 4.1 (3.5-5.1) Sodium (137-145) mmol/L Potassium (3.5-5.1) mmol/L Chloride (98-107) mmol/L Carbon Dioxide (22-30) mmol/L Anion Gap (5-15) MEQ/L BUN (9-20) mg/dL Creatinine (0.66-1.25) mg/dL Estimated GFR ML/MIN Glucose (74-106) mg/dL Lactic Acid 3.6 H (0.4-2.0) Calcium (8.4-10.2) mg/dL Magnesium (1.6-2.3) mg/dL Total Bilirubin (0.2-1.3) mg/dL AST (17-59) U/L ALT (0-50) U/L Alkaline Phosphatase (38-126) U/L Troponin I < 0.012 (0.000-0.034) ng/mL NT-Pro-B Natriuret Pep (0-450) pg/mL Serum Total Protein (6.3-8.2) g/dL Albumin (3.5-5.0) g/dL Urine Color STRAW (YELLOW) Urine Appearance CLEAR (CLEAR) Urine pH 7.0 (5-6) Ur Specific [place] 1.012 (1.005-1.025) Urine Protein NEGATIVE (Negative) Urine Ketones NEGATIVE (NEGATIVE) Urine Blood NEGATIVE (0-5) Eric/ul Urine Nitrite NEGATIVE (NEGATIVE) Urine Bilirubin NEGATIVE (NEGATIVE) Urine Urobilinogen NEGATIVE (0-1) mg/dL Ur Leukocyte Esterase NEGATIVE (NEGATIVE) Urine WBC (Auto) NONE (0-5) /HPF Urine RBC (Auto) NONE (0-2) /HPF U Epithel Cells (Auto) NONE (FEW) /HPF Urine Bacteria (Auto) NONE (NEGATIVE) /HPF Urine Mucus (Auto) SLIGHT (NEGATIVE) /HPF Urine Culture Reflexed NO (NO) Urine Glucose 150 (NEGATIVE) mg/dL Urine Opiates Level (NEGATIVE) Ur Methadone (NEGATIVE) Urine Barbiturates (NEGATIVE) Ur Phencyclidine (PCP) (NEGATIVE) Urine Amphetamine (NEGATIVE) U Benzodiazepine Level (NEGATIVE) Urine Cocaine (NEGATIVE) Urine Marijuana (THC) (NEGATIVE) Influenza Type A Ag (NEGATIVE) Influenza Type B Ag (NEGATIVE) RSV (PCR) (Negative) 06/15/19 06/15/19 06/15/19 Range/Units 19:12 19:12 19:12 WBC 11.4 H (4.0-10.5) K/mm3 RBC 4.06 L (4.1-5.6) M/mm3 Hgb 12.4 L (12.5-18.0) gm/dl Hct 37.0 L (42-50) % MCV 91.1 (78-100) fl MCH 30.5 (26-32) pg MCHC 33.5 (32-36) g/dl RDW 13.4 (11.5-14.0) % Plt Count 288 (150-450) K/mm3 MPV 9.0 (6-9.5) fl Gran % 45.6 (36.0-66.0) % Eos # (Auto) 0.27 (0-0.5) Absolute Lymphs (auto) 4.59 (1.0-4.6) Absolute Monos (auto) 1.31 H (0.0-1.3) Lymphocytes % 40.3 (24.0-44.0) % Monocytes % 11.5 (0.0-12.0) % Eosinophils % 2.4 (0.00-5.0) % Basophils % 0.2 (0.0-0.4) % Absolute Granulocytes 5.21 (1.4-6.9) Basophils # 0.02 (0-0.4) PT 11.5 (8.83-12.87) SECONDS INR 1.02 (0.8-3.0) D-Dimer 215 (215-500) ng/mL pO2/FiO2 Ratio % VBG pH (7.32-7.42) VBG pCO2 at Pat Temp (42-55) mm/Hg VBG pO2 at Pat Temp (25-40) mm/Hg VBG HCO3 (22-28) meq/L VBG O2 Sat (Monika) (95-100) VBG Base Excess (-2.0-2.0) VBG Hemoglobin VBG Carboxyhemoglobin (0.0-6.9) % T HGB POC Potassium (3.5-5.1) Sodium 138 (137-145) mmol/L Potassium 4.1 (3.5-5.1) mmol/L Chloride 105 (98-107) mmol/L Carbon Dioxide 22 (22-30) mmol/L Anion Gap 16.0 H (5-15) MEQ/L BUN 25 H (9-20) mg/dL Creatinine 1.04 (0.66-1.25) mg/dL Estimated GFR > 60.0 ML/MIN Glucose 112 H (74-106) mg/dL Lactic Acid (0.4-2.0) Calcium 9.4 (8.4-10.2) mg/dL Magnesium 2.0 (1.6-2.3) mg/dL Total Bilirubin 0.30 (0.2-1.3) mg/dL AST 30 (17-59) U/L ALT 40 (0-50) U/L Alkaline Phosphatase 85 (38-126) U/L Troponin I (0.000-0.034) ng/mL NT-Pro-B Natriuret Pep 58.6 (0-450) pg/mL Serum Total Protein 8.2 (6.3-8.2) g/dL Albumin 4.4 (3.5-5.0) g/dL Urine Color (YELLOW) Urine Appearance (CLEAR) Urine pH (5-6) Ur Specific [place] (1.005-1.025) Urine Protein (Negative) Urine Ketones (NEGATIVE) Urine Blood (0-5) Eric/ul Urine Nitrite (NEGATIVE) Urine Bilirubin (NEGATIVE) Urine Urobilinogen (0-1) mg/dL Ur Leukocyte Esterase (NEGATIVE) Urine WBC (Auto) (0-5) /HPF Urine RBC (Auto) (0-2) /HPF U Epithel Cells (Auto) (FEW) /HPF Urine Bacteria (Auto) (NEGATIVE) /HPF Urine Mucus (Auto) (NEGATIVE) /HPF Urine Culture Reflexed (NO) Urine Glucose (NEGATIVE) mg/dL Urine Opiates Level (NEGATIVE) Ur Methadone (NEGATIVE) Urine Barbiturates (NEGATIVE) Ur Phencyclidine (PCP) (NEGATIVE) Urine Amphetamine (NEGATIVE) U Benzodiazepine Level (NEGATIVE) Urine Cocaine (NEGATIVE) Urine Marijuana (THC) (NEGATIVE) Influenza Type A Ag (NEGATIVE) Influenza Type B Ag (NEGATIVE) RSV (PCR) (Negative) - Progress Progress: improved, re-examined Air Movement: good Progress Note: 06/15/19 21:54 Patient's vital to improve with time, IV hydration and no medications were given. patient has no current complaint of shortness of breath, palpitations, chest pain, nausea, vomiting, dizziness, or any focal weakness. With patient having no past history of DVT or PE, no physical exam findings consistent with DVT and a normal range D-Dimer, patient is at low risk of pulmonary embolus causing his dyspnea, so no need for CTA chest at this time. HEART score: 1, up to 1.7 percent chance for MACE in the next 6 weeks, low risk Blood Culture(s) Obtained: No Antibiotics given: No Counseled pt/family regarding: lab results, diagnosis, need for follow-up, rad results - Departure Departure Disposition: Skilled Nursing/Nursing Home Clinical Impression: Elevated blood pressure reading without diagnosis of hypertension Dyspnea Qualifiers: Dyspnea type: unspecified Qualified Code(s): R06.00 - Dyspnea, unspecified Condition: Good Critical Care Time: No Referrals: WARREN RUTH [Primary Care Provider] - 06/16/19 Additional Instructions: Return immediately back to the emergency department if any recurrent chest pain , shortness of breath, back pain, abdominal pain, pain on inspiration or any other concerning signs or symptoms that were not present at today's visit for immediate reevaluation in the emergency department.
[2019-06-15 19:47] LABS: Lactic Acid 3.6 (0.4-2.0); VBG BASE EXCESS 1.4 (-2.0-2.0); VBG HCO3- 24.9 meq/L (22-28); VBG HEMOGLOBIN 12.6; VBG O2 SATURATION 56.8 (95-100); VBG PCO2 35 mm/Hg (42-55); VBG PO2 24 mm/Hg (25-40); VBG POTASSIUM 4.1 (3.5-5.1); VBG pH 7.46 (7.32-7.42)
[2019-06-15 19:48] LABS: VBG CARBOXYHEMOGLOBIN 7.8 % T HGB (0.0-6.9)
[2019-06-15] MEDS ORDERED: Sodium Chloride 0.9% 1000 ML 1,000 ML ONE ×2 (19:56→21:00)
[2019-06-15] MEDS: Sodium Chloride 0.9% 1000 ML 2,000 ML IV STA ×2 (19:58→21:02)
[2019-06-15 20:00] LABS: ALBUMIN 4.4 g/dL (3.5-5.0); ALKALINE PHOSPHATASE 85 U/L (38-126); BLOOD UREA NITROGEN 25 mg/dL (9-20); CHLORIDE 105 mmol/L (98-107); Calcium 9.4 mg/dL (8.4-10.2); Carbon Dioxide 22 mmol/L (22-30); Creatinine 1 1.04 mg/dL (0.66-1.25); Glucose 112 mg/dL (74-106); NT PRO BNP 58.6 pg/mL (0-450); Potassium 4.1 mmol/L (3.5-5.1); SGOT/AST 30 U/L (17-59); SGPT/ALT 40 U/L (0-50); SODIUM 138 mmol/L (137-145); Total Protein 8.2 g/dL (6.3-8.2)
[2019-06-15 20:02] LABS: Appearance CLEAR (CLEAR); Bilirubin NEGATIVE (NEGATIVE); Blood NEGATIVE Ery/ul (0-5); Glucose 150 mg/dL (NEGATIVE); Ketones NEGATIVE (NEGATIVE); Leukocyte Esterase NEGATIVE (NEGATIVE); Mucus SLIGHT /HPF (NEGATIVE); Nitrite NEGATIVE (NEGATIVE); Protein,Urine Dip NEGATIVE (Negative); Specific Gravity 1.012 (1.005-1.025); Urobilinogen NEGATIVE mg/dL (0-1)
[2019-06-15 20:13] LABS: INFLUENZA A NEGATIVE (NEGATIVE); INFLUENZA B NEGATIVE (NEGATIVE); RESPIRATORY SYNCTIAL VIRUS NEGATIVE (Negative)
[2019-06-15 20:13] LABS: Barbiturate,Urine NEGATIVE (NEGATIVE); Benzodiazepine,Urine NEGATIVE (NEGATIVE); Cocaine,Urine NEGATIVE (NEGATIVE); Methadone,Urine POSITIVE (NEGATIVE); Opiate,Urine NEGATIVE (NEGATIVE); PCP,Urine NEGATIVE (NEGATIVE); THC,Urine NEGATIVE (NEGATIVE)
[2019-06-15 20:39] LABS: Amphetamine,Urine POSITIVE (NEGATIVE)
[2019-06-15 21:52] LABS: Lactic Acid 2.4 (0.4-2.0)
[2019-06-15 22:03] VITALS: BP 158/78; PULSE 63; O2SAT 96
--- NOTE | 2019-06-16 09:24 | XRAY ---
Indication: Dyspnea. Comparison: June 15, 2010. Portable chest less inflated and remains clear. Heart and mediastinal structures within normal limits. Bony thorax intact. Impression: Nonacute chest.
== END 2019-06-15 22:10 | disposition home or self-care (01) ==
LOC: ED 19:09
DX: R03.0 Elevated blood-pressure reading, without diagnosis of hypertension (principal); R06.00 Dyspnea, unspecified
CPT/HCPCS: 36000; 36415; 71045; 80053; 80307; 81001; 82805; 83605; 83735; 83880; 84484; 85025; 85379; 85610; 87631; 93005; 93041; 96360; 99284

== ENCOUNTER 2019-12-25 16:04 | Emergency (ER) | payer OTHER ==
[2019-12-25 16:31] VITALS: O2SAT 96
[2019-12-25 16:57] LABS: Absolute Neutrophil Ct (ANC) 4.22 (1.4-6.9); BASOPHIL % 0.3 % (0.0-0.4); Basophil (Absolute #) 0.03 (0-0.4); Eosinophil % 0.6 % (0.00-5.0); Eosinophil (Absolute #) 0.06 (0-0.5); Hemoglobin 11.7 gm/dl (12.5-18.0); Lymphocyte (Absolute #) 3.71 (1.0-4.6); Lymphocytes % 37.7 % (24.0-44.0); Mean Cell Volume 89.7 fl (78-100); Mean Corpuscular Hgb Concent. 33.4 g/dl (32-36); Mean Platelet Volume 9.1 fl (7.5-11.0); Monocyte (Absolute #) 1.81 (0.0-1.3); Monocytes % 18.4 % (0.0-12.0); Platelet Count 247 K/mm3 (150-450); Red Cell Distribution Width 13.9 % (11.5-14.0); White Blood Count 9.8 K/mm3 (4.0-10.5)
[2019-12-25 17:19] LABS: Barbiturate,Urine NEGATIVE (NEGATIVE); Benzodiazepine,Urine NEGATIVE (NEGATIVE); Cocaine,Urine NEGATIVE (NEGATIVE); Methadone,Urine POSITIVE (NEGATIVE); Opiate,Urine NEGATIVE (NEGATIVE); PCP,Urine NEGATIVE (NEGATIVE); THC,Urine NEGATIVE (NEGATIVE)
[2019-12-25 17:22] LABS: Slide Review 1 YES
[2019-12-25 17:24] LABS: ALBUMIN 4.6 g/dL (3.5-5.0); ALKALINE PHOSPHATASE 99 U/L (38-126); ANION GAP 16.2 MEQ/L (5-15); BLOOD UREA NITROGEN 21 mg/dL (9-20); CHLORIDE 108 mmol/L (98-107); Calcium 9.3 mg/dL (8.4-10.2); Carbon Dioxide 23 mmol/L (22-30); Glucose 83 mg/dL (74-106); Potassium 3.9 mmol/L (3.5-5.1); SGOT/AST 62 U/L (17-59); SGPT/ALT 45 U/L (0-50); SODIUM 143 mmol/L (137-145); Total Protein 8.4 g/dL (6.3-8.2)
[2019-12-25 17:26] LABS: ACETAMINOPHEN < 10 ug/ml (10-30); SALICYLATE < 1.0 mg/dL (2-20)
[2019-12-25 17:37] LABS: Amphetamine,Urine POSITIVE (NEGATIVE)
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
[2019-12-25 21:04] VITALS: BP 123/68; PULSE 106
== END 2019-12-25 21:13 | disposition home or self-care (01) ==
LOC: ED 16:04
DX: R45.1 Restlessness and agitation (principal); L98.9 Disorder of the skin and subcutaneous tissue, unspecified; X78.1XXA Intentional self-harm by knife, initial encounter; Y92.89 Other specified places as the place of occurrence of the external cause; F12.90 Cannabis use, unspecified, uncomplicated; Z79.899 Other long term (current) drug therapy
CPT/HCPCS: 36415; 80053; 80307; 85025; 90791; 99284; G0480; G0481; Q3014

== ENCOUNTER 2022-01-12 07:36 | Emergency (ER) | payer OTHER ==
[2022-01-12 07:45] VITALS: BP 139/100; PULSE 98; O2SAT 95
--- NOTE | 2022-01-12 08:24 | ERPHSYRPT ---
- History of Present Illness Time Seen by Provider: 01/12/22 07:39 Source: patient Exam Limitations: no limitations Patient Subjective Stated Complaint: pt has splinter to bottom of rigth foot, and unable to get out Triage Nursing Assessment: pt alert,resp easy, skin w/d/p. face mask in place, has large splinter to bottom of right foot, no swelling or redness Physician History: 36 years old male presented in the ER with chief complaint of splinter right foot sole. Patient report he was putting his sock on and accidentally had a splinter in it when he pulled his sock. It is on the sole of her right lateral distal foot area. Mild to moderate sharp pain with ambulation. Better with resting. Up-to-date with tetanus. Timing/Duration: today, sudden Quality: painful Severity: moderate Location: feet Allergies/Adverse Reactions: No Known Drug Allergies Allergy (Verified 01/12/22 07:47) Home Medications: Levetiracetam [Keppra] 500 mg PO BID 07/24/17 [History] Famotidine 20 mg [Pepcid 20 MG] 20 mg PO BID 09/19/18 [History] Methylphenidate HCl [Methylphenidate ER] 20 mg PO DAILY 09/19/18 [History] Gabapentin 300 mg PO TID 06/15/19 [History] Enalapril Maleate 1 tab PO DAILY 12/25/19 [History] hydroCHLOROthiazide [Hydrochlorothiazide] 1 tab PO DAILY 12/25/19 [History] Methadone HCl 80 mg .ROUTE DAILY 01/12/22 [History] Hx Tetanus, Diphtheria Vaccination/Date Given: No (unsure) Hx Influenza Vaccination/Date Given: No Hx Pneumococcal Vaccination/Date Given: No Immunizations Up to Date: Yes Travel Risk - International Travel Have you traveled outside of the country in past 3 weeks: No - Coronavirus Screening Are you exhibiting any of the following symptoms?: No - Vaccine Status Have you recieved a Covid-19 vaccination: No - Review of Systems Constitutional: No Symptoms Eyes: No Symptoms Respiratory: No Symptoms Cardiac: No Symptoms Musculoskeletal: Injury Skin: Skin Lesions Neurological: No Symptoms Psychological: No Symptoms Endocrine: No Symptoms Hematologic/Lymphatic: No Symptoms - Past Medical History Pertinent Past Medical History: Yes Neurological History: Epilepsy ENT History: No Pertinent History Cardiac History: Hypertension Respiratory History: Pneumonia Endocrine Medical History: No Pertinent History Musculoskeletal History: Other GI Medical History: GERD History: No Pertinent History Psycho-Social History: Bipolar, Depression Male Reproductive Disorders: No Pertinent History Other Medical History: schizophrenia - Past Surgical History Past Surgical History: Yes Neuro Surgical History: Other Cardiac: No Pertinent History Respiratory: No Pertinent History Gastrointestinal: No Pertinent History Genitourinary: No Pertinent History Musculoskeletal: Orthopedic Surgery Male Surgical History: No Pertinent History Other Surgical History: left foot, right knee - Social History Smoking Status: Current every day smoker How long have you smoked: years Exposure to second hand smoke: No Drug Use: marijuana, methamphetamines Patient Lives Alone: No - Nursing Vital Signs Nursing Vital Signs: Initial Vital Signs Temperature 98.2 F 01/12/22 07:41 Pulse Rate 98 H 01/12/22 07:41 Respiratory Rate 18 01/12/22 07:41 Blood Pressure 139/100 01/12/22 07:41 O2 Sat by Pulse Oximetry 95 01/12/22 07:41 Pain Scale Pain Intensity 4 - Physical Exam General Appearance: no apparent distress, alert Eye Exam: PERRL/EOMI Neck Exam: normal inspection, full range of motion Respiratory Exam: normal breath sounds, lungs clear Cardiovascular Exam: regular rate/rhythm, normal heart sounds Extremity Exam: normal inspection, normal range of motion, other (Almost 2 cm splinter on right distal lateral sole of foot. Tenderness on palpation evaluated.) Neurologic Exam: alert, oriented x 3, cooperative, assistant scientist II-XII nml as tested Skin Exam: normal color SpO2 Interpretation: normal SpO2: 95 O2 Delivery: Room Air - Progress Progress: improved Progress Note: 01/12/22 08:21 Procedure note. Time 8:10 AM. Splinter removal right foot sole. Anesthesia 1% lidocaine 3 cc. Incision with #15 blade along the line of splinter and pulled it intact. Patient tolerated procedure very well. Bacitracin applied. We will give him prophylactic antibiotics for few days. Tylenol ibuprofen as needed Counseled pt/family regarding: diagnosis, need for follow-up - Departure Departure Disposition: Home Clinical Impression: Foreign body in foot Qualifiers: Encounter type: initial encounter Laterality: right Qualified Code(s): S90.851A - Superficial foreign body, right foot, initial encounter Condition: Stable Critical Care Time: No Referrals: BRIGIDA PINZON MD [Primary Care Provider] - Follow Up with PCP/3 days Instructions: Cellulitis (Skin Infection), Adult (DC) Additional Instructions: Take Tylenol/ibuprofen as needed. Weightbearing as tolerated. Follow-up with primary care for reevaluation. Return to ER for increasing swelling redness d ischarge/fever chills etc. Prescriptions: Cephalexin Mh 500 mg [Keflex 500 mg] 500 mg PO TID #15 cap
== END 2022-01-12 08:30 | disposition home or self-care (01) ==
LOC: ED 07:36
DX: S90.851A Superficial foreign body, right foot, initial encounter (principal); I10 Essential (primary) hypertension; K21.9 Gastro-esophageal reflux disease without esophagitis; Z72.0 Tobacco use; Z79.899 Other long term (current) drug therapy
CPT/HCPCS: 10120; 99283